=== PATIENT | female | born 1965 | race Caucasian/White ===

== ENCOUNTER 2024-07-17 09:15 | Inpatient (IN) | payer MEDICAID, SELFPAY ==
--- NOTE | 2024-07-14 07:59 | EKG_ITS ---
[facility] Test Date: 2024-07-14 Pat Name: MARYURI DOWNING Department: Room: - Gender: Female Baker Test: DORIS : 1965 Requested By: Tye Ellis Order Number: [id number] Reading MD: Tye Ellis Measurements Intervals [place] Rate: 88 P: 61 WI: 164 QRS: 49 QRSD: 72 T: 46 QT: 340 QTc: 413 Interpretive Statements SINUS RHYTHM NONSPECIFIC ST & T-WAVE ABNORMALITY No previous ECG available for comparison /store/S0/[id number]/ecg/[id number]
[2024-07-14 10:34] VITALS: BMI 22.7
[2024-07-14 12:08] LABS: Basophils # (Auto) 0.1 Thou/mm3 (0.0-0.2); Basophils % (Auto) 1 % (0-2.5); Eosinophils # (Auto) 0.1 Thou/mm3 (0.0-0.5); Eosinophils % (Auto) 1 % (0-10); Hematocrit 38.1 % (36.0-46.0); Hemoglobin 12.7 g/dL (12.0-16.0); Immature Granulocytes % (Auto) 1 % (0-0); Immature Granulocytes Auto 0.03 Thou/mm3 (0.00-0.00); Lymphocytes # (Auto) 1.2 Thou/mm3 (1.0-4.8); Lymphocytes % (Auto) 23 % (10-50); Mean Corpuscular HGB Conc 33.3 g/dl (31.0-37.0); Mean Corpuscular Hemoglobin 33.3 pg (25.0-35.0); Mean Corpuscular Volume 100 fL (80-100); Monocytes # (Auto) 0.5 Thou/mm3 (0.0-0.8); Monocytes % (Auto) 10 % (0-12); Neutrophils # (Auto) 3.2 Thou/mm3 (1.8-7.7); Neutrophils % (Auto) 64 % (37-80); Nucleated Red Blood Cell % 0 /100 WBC (0); Platelet Count 298 Thou/mm3 (140-440); RDW Standard Deviation 43.8 fL (36.4-46.3); Red Blood Count 3.81 Miln/mm3 (4.00-5.20)
[2024-07-14 12:19] LABS: Anion Gap 6 (7-16); BUN/Creatinine Ratio 17 Ratio (12-20); Blood Urea Nitrogen 15 mg/dL (9-23); Carbon Dioxide 28.3 mMol/L (20.0-31.0); Chloride 105 mMol/L (98-107); Creatinine (Component) 0.9 mg/dL (0.6-1.3); Estimated Creatinine Clearance 67.1 mL/min (>60); Glucose 111 mg/dL (74-106); Osmolality,Calculated 279 (275-295); Potassium 3.8 mMol/L (3.4-5.1); Sodium 139 mMol/L (136-145); eGFR > 60 See Note
[2024-07-17] VITALS (18 sets, daily range): BP systolic 132–151; BP diastolic 83–99; PULSE 81–109; RESP 11–25; TEMP 36.2–36.9; O2SAT 97–100; BMI 22.4
--- NOTE | 2024-07-17 10:35 | CHAP ---
Patient expressed gratitude for prayer before their procedure.
--- NOTE | 2024-07-17 13:30 | SUR.PHASEI ---
pt received from OR in recovery bay 5. pt asleep but responds to voice, breathing unlabored on oxymask 6l, v/s stable. pt dressing to abd cdi, ileostomy in place. report received from Nishant RUTLEDGE and Shanique DALTON.
--- NOTE | 2024-07-17 13:40 | ESOP_ITS ---
Date of Procedure 07/17/24 Pre Op Diagnosis Rectal cancer status post chemo and radiation Post Op Diagnosis Rectal cancer status post chemo and radiation Procedure Exploratory laparotomy, rectosigmoidectomy Diverting loop ileostomy Findings Proximal rectal cancer with blue marking clearly visible. No evidence of pelvic, omental or peritoneal nodules or metastasis. Anterior surface of the liver was smooth without any lesions. Procedure Description Patient brought into the operating room in supine position. After administration of general tracheal anesthesia, patient was placed in low lithotomy position. Her abdomen and perineum prepped and draped in standard surgical manner. A laparotomy incision was made from below the umbilicus to suprapubic region and dissection was deepened into soft tissue. Anterior abdominal fascia was divided. Upon entering the peritoneal cavity a Bookwalter retractor was placed for adequate exposure. There was no evidence of pelvic or omental nodules or metastasis. The anterior surface of the liver was palpated, was smooth without any obvious lesions. The small bowel was eviscerated, was run from ligament of Treitz up to ileocecal junction, no evidence of mass, lesions are lymphadenopathy noted. Cecum, ascending colon, transverse and descending colon were palpated, no obvious mass or any tumors noted. Descending colon and sigmoid colon were mobilized by dividing the white line of Toldt. Mobilization continued cephalad and medial rectum was divided. The rectum mobilized distally up to the level of levator ani distal to the area of blue marking. The blue markings were clearly visible in the mid rectum. Once the rectum was fully mobilized, this distal aspect of the rectum was divided with TA stapling device. There were some inflammatory reaction and edema of the rectum from history of radiation. Remaining aspect of medial rectum was divided with Enseal harmonic device. Inferior mesenteric artery was ligated near its origin, inferior mesenteric vein was ligated inferior to the fourth portion of duodenum. The proximal sigmoid colon was divided with REX stapling device. The end of descending colon was reaching the rectum without any tension. Descending colon was mobilized all the way up to splenic flexure to ensure a tension-free anastomosis. The end of descending colon was opened, a pursestring suture using 2-0 Prolene applied. The anvil portion of the EEA stapling device was placed through the opening and the pursestring suture was tightened. Anal canal was sequentially dilated. The EEA stapling device was placed through the anus and was advanced and brought out anterior to the rectal staple line. The stapler was opened and connected with an anvil, care was taken to make sure orientation was appropriate without tension or any kinking. The stapler was closed and fired. The staple line was removed, 2 well-formed donuts were retrieved. An air leak test was performed to assure the integrity of the anastomosis. Rigid proctoscope was placed through the anal canal and air was insufflated, there was no air bubbles in the pelvis assuring hemostasis was airtight. Because the anastomosis was very low in the pelvis, I was unable to place reinforcing Lembert sutures. Abdomen and pelvis copiously and thoroughly washed and irrigated, all the fluids were suctioned and the suction fluid returned clear. Hemostasis was adequate and satisfactory. Because the anastomosis was very low in the pelvis and there were some edema of the rectum from the history of radiation, I elected to perform a diverting loop ileostomy. A loop of ileum approximately 30 cm proximal to ileocecal junction was selected. 3 cm circular opening was made on the right mid abdomen. Anterior abdominal fascia was opened vertically, the rectus muscle was split, posterior abdominal fascia and peritoneum were opened. The opening was easily accommodating 3 finger breaths. The loop of ileum was brought out of this opening to be matured as a loop ileostomy. The laparotomy incision was closed at this time. Anterior abdominal fascia was closed with running PDS as well as interrupted sutures with #1 Vicryl. The wound was washed and the skin was closed with brigette. The loop ileostomy was matured in Radha fashion, the afferent limb was superior and the efferent limb was inferior. Appropriate ileostomy appliance is applied. Incision was covered with dry sterile dressings. Patient tolerated the procedure well. She was placed in supine position and extubated. She was breathing spontaneously and without difficulty and was transferred to postanesthesia care in stable condition. Instruments, needles and sponge counts were reported to be correct x 2. Anesthesia GETA and local Pathology / specimen Other (Rectosigmoid) Estimated Blood Loss 50 Condition Stable Disposition PACU Surgeon Tye Ellis MD Surgical Staff Operation Date: 07/17/24 11:45 Case Staff MERCHANDISE CARRIER: Nishant Trevizo RN First Assistant: Kera Montano
[2024-07-17] MEDS: MORPHINE SULF 1 MG/ML PCA SYRINGE 30 ML PCA (13:56)
[2024-07-17] MEDS: KCL 20 mEq/L in D5-1/2NS 20 MEQ/1,000 ML BAG 70 MEQ IV (13:58)
--- NOTE | 2024-07-17 16:20 | SUR.PHASEII ---
pt asleep but responds to voice, breathing unlabored on 1l nc. v/s stable. pt dressing to abd cdi. report called to Leighton Lopez. pt will be transferred to floor at this time.
[2024-07-17] MEDS: PANTOPRAZOLE INJ 40 MG VIAL IVP (17:41)
[2024-07-17] MEDS: CEFOXITIN 2 GM in SODIUM CHLORIDE 0.9% (P) 50 ML IV ×2 (17:42→23:37)
[2024-07-17] MEDS: ACETAMINOPHEN IVPB 1,000 MG/100 ML VIAL 250 MG IV (17:44)
[2024-07-18] VITALS (10 sets, daily range): BP systolic 115–134; BP diastolic 78–91; PULSE 95–105; RESP 16–20; TEMP 36.8–37.2; O2SAT 98–100
[2024-07-18] MEDS: ACETAMINOPHEN IVPB 1,000 MG/100 ML VIAL 250 MG IV ×3 (00:22→12:12)
[2024-07-18] MEDS: MORPHINE SULF 1 MG/ML PCA SYRINGE 30 ML PCA (00:48)
[2024-07-18] MEDS: CEFOXITIN 2 GM in SODIUM CHLORIDE 0.9% (P) 50 ML IV ×4 (06:46→23:50)
[2024-07-18] MEDS: ASCORBIC ACID 250 MG TABLET 500 MG PO ×2 (09:25→20:46)
[2024-07-18] MEDS: PANTOPRAZOLE INJ 40 MG VIAL IVP (09:25)
[2024-07-18] MEDS: ZINC SULFATE 220 MG CAPSULE PO (09:25)
[2024-07-18] MEDS: KCL 20 mEq/L in D5-1/2NS 20 MEQ/1,000 ML BAG 70 MEQ IV (09:42)
[2024-07-18] MEDS: ONDANSETRON INJ 2 MG/ML INJ 2 ML 4 MG IV (12:11)
--- NOTE | 2024-07-18 12:17 | PD.SURPROG ---
Documentation for date of: 07/18/24 Subjective Subjective Narrative: Patient is seen and examined. She is resting, pain is controlled with HARP REPAIRER. She denies nausea or vomiting Exam Vital Signs Temp Pulse Resp BP Pulse Ox O2 Del Method O2 Flow Rate 98.2 F 104 H 16 129/78 99 Nasal Cannula 1 07/18/24 11:36 07/18/24 11:36 07/18/24 11:36 07/18/24 11:36 07/18/24 11:36 07/18/24 11:36 07/18/24 11:36 Constitutional Constitutional: no acute distress Routine Abdominal Exam Comments: Abdomen is soft and mildly distended. She has hypoactive bowel sounds. Ileostomy has greenish fluid. Incision with dressing clean, dry and intact Assessment & Plan Assessment Additional comments: Postop day #1 status post rectosigmoidectomy with diverting loop ileostomy Plan Will start patient on clear liquids and Ensure supplements. Hep-Lock IV fluids. Increase ambulation. Use incentive spirometer Procedures Procedures Exploratory laparotomy, rectosigmoidectomy Diverting loop ileostomy
--- NOTE | 2024-07-18 12:19 | PC.SS ---
This is 58-year-old, , single female who presented to the hospital for surgery. Patient appeared alert and oriented to self, place and situation. Patient was pleasant, her mood and behavior was ordinary. Patient's thought process was organized and logical. Patient reported that prior to hospital admission, she resided alone at home. Patient is independent; she denied any DME use. Patient assigned her daughter, Edna as her emergency contact and medical decision maker. Patient's PCP is CHRISTINA and surgeon is Dr. Ellis. When medically clear, patient will return home; family will provide transportation.
[2024-07-19] VITALS (8 sets, daily range): BP systolic 113–128; BP diastolic 74–89; PULSE 80–104; RESP 16–97; TEMP 36.1–37.1; O2SAT 95–100
[2024-07-19] MEDS: CEFOXITIN 2 GM in SODIUM CHLORIDE 0.9% (P) 50 ML IV ×3 (05:27→17:47)
[2024-07-19] MEDS: MORPHINE SULF 1 MG/ML PCA SYRINGE 30 ML PCA (05:52)
[2024-07-19 05:53] LABS: Basophils % (Auto) 0 % (0-2.5); Eosinophils % (Auto) 0 % (0-10); Hematocrit 36.4 % (36.0-46.0); Immature Granulocytes % (Auto) 0 % (0-0); Immature Granulocytes Auto 0.03 Thou/mm3 (0.00-0.00); Lymphocytes # (Auto) 0.7 Thou/mm3 (1.0-4.8); Lymphocytes % (Auto) 8 % (10-50); Mean Corpuscular Hemoglobin 33.6 pg (25.0-35.0); Mean Corpuscular Volume 102 fL (80-100); Monocytes # (Auto) 0.6 Thou/mm3 (0.0-0.8); Monocytes % (Auto) 7 % (0-12); Neutrophils # (Auto) 7.5 Thou/mm3 (1.8-7.7); Neutrophils % (Auto) 84 % (37-80); Nucleated Red Blood Cell % 0 /100 WBC (0); Platelet Count 265 Thou/mm3 (140-440); RDW Standard Deviation 44.8 fL (36.4-46.3); Red Blood Count 3.57 Miln/mm3 (4.00-5.20); White Blood Count 8.9 Thou/mm3 (3.6-11.0)
[2024-07-19 06:15] LABS: Albumin, Serum 4.1 gm/dL (3.5-5.0); Anion Gap 6 (7-16); BUN/Creatinine Ratio 12 Ratio (12-20); Blood Urea Nitrogen 7 mg/dL (9-23); Calcium 10.1 mg/dL (8.3-10.6); Calcium (Corrected) 10.1 mg/dL (8.5-10.1); Carbon Dioxide 26.3 mMol/L (20.0-31.0); Chloride 108 mMol/L (98-107); Creatinine (Component) 0.6 mg/dL (0.6-1.3); Estimated Creatinine Clearance 100.6 mL/min (>60); Glucose 103 mg/dL (74-106); Magnesium 2.2 mg/dL (1.6-2.6); Osmolality,Calculated 277 (275-295); Phosphorous 2.4 mg/dL (2.4-5.1); Sodium 140 mMol/L (136-145); eGFR > 60 See Note
[2024-07-19] MEDS: ASCORBIC ACID 250 MG TABLET 500 MG PO ×2 (08:48→21:05)
[2024-07-19] MEDS: PANTOPRAZOLE INJ 40 MG VIAL IVP (08:48)
[2024-07-19] MEDS: ZINC SULFATE 220 MG CAPSULE PO (08:48)
--- NOTE | 2024-07-19 11:42 | PD.SURPROG ---
Documentation for date of: 07/19/24 Subjective Subjective Narrative: Pt is seen and examined. Pain is controlled. She is tolerating clear liquids. Exam Vital Signs Temp Pulse Resp BP Pulse Ox O2 Del Method O2 Flow Rate 97.5 F 98 18 127/74 98 Nasal Cannula 1 07/19/24 07:51 07/19/24 10:37 07/19/24 10:37 07/19/24 07:51 07/19/24 10:37 07/19/24 07:51 07/19/24 10:37 Constitutional Constitutional: no acute distress Routine Abdominal Exam Abdominal: Present soft, normoactive bowel sounds, tenderness (Yessica-incisional tenderness. Incision with dressing clean, dry and intact.), distended (minimally distended) and ostomy (Ileostomy is pink, patent, present and productive) Assessment & Plan Assessment Additional comments: Postop day #2 status post rectosigmoidectomy with diverting loop ileostomy Plan Advance to soft diet. DC seo catheter. Continue to use incentive spirometer and increase ambulation Procedures Procedures Exploratory laparotomy, rectosigmoidectomy Diverting loop ileostomy
[2024-07-19] MEDS: HYDROcodone/APAP 5/325 TABLET 1 TAB PO (16:02)
[2024-07-20] VITALS (7 sets, daily range): BP systolic 115–148; BP diastolic 74–98; PULSE 90–103; RESP 16–97; TEMP 36.3–37.4; O2SAT 96–98; BMI 22.4
[2024-07-20] MEDS: CEFOXITIN 2 GM in SODIUM CHLORIDE 0.9% (P) 50 ML IV ×4 (00:24→19:23)
[2024-07-20] MEDS: HYDROcodone/APAP 5/325 TABLET 1 TAB PO ×3 (00:31→19:41)
--- NOTE | 2024-07-20 07:51 | PD.SURPROG ---
Documentation for date of: 07/20/24 Subjective Subjective Narrative: Patient is seen and examined. She is tolerating diet without nausea or vomiting and voiding without difficulty. Exam Vital Signs Temp Pulse Resp BP Pulse Ox O2 Del Method O2 Flow Rate 97.9 F 103 H 20 131/90 H 97 Room Air 1 07/20/24 04:00 07/20/24 07:00 07/20/24 07:00 07/20/24 04:00 07/20/24 04:00 07/20/24 04:00 07/20/24 00:00 Constitutional Constitutional: no acute distress Routine Abdominal Exam Comments: Abdomen is soft and minimally distended. Incision is clean, dry and intact. Ileostomy is pink, patent, present and productive Assessment & Plan Assessment Additional comments: Postop day #3 status post rectosigmoidectomy with diverting loop ileostomy Plan Will advance diet. Will make arrangements for home health to assist with ileostomy. When tolerating soft diet and pain is controlled with oral pain medication will discharge home possibly tomorrow. Procedures Procedures Exploratory laparotomy, rectosigmoidectomy Diverting loop ileostomy
[2024-07-20] MEDS: PANTOPRAZOLE INJ 40 MG VIAL IVP (09:36)
[2024-07-20] MEDS: ZINC SULFATE 220 MG CAPSULE PO (09:37)
[2024-07-20] MEDS: ASCORBIC ACID 250 MG TABLET 500 MG PO ×2 (09:37→20:13)
--- NOTE | 2024-07-20 10:12 | PC.CC ---
Pt enered into [facility], no preferred HH agency
--- NOTE | 2024-07-20 11:00 | PC.NURSE ---
Changed ileostomy bag and educated patient on proper way to clean, empty and place new bag.
--- NOTE | 2024-07-20 12:46 | PC.SS ---
Follow up note: Pt is on IV antibiotic and will monitor 1 more night. Pt will return home with HH Services for Ileostomy Care. SS spoke to bedside nurse, Nara who explained Dr. Ellis ordered [facility] for [facility]. Pt does not have preference for HH Services. Pt will be staying at address: [address] [place] [address] [address]. Patient's dtrs will help care for pt at home.
[2024-07-21] VITALS: BP 121/74; PULSE 95; RESP 18; TEMP 36.6; O2SAT 98
[2024-07-21] MEDS: CEFOXITIN 2 GM in SODIUM CHLORIDE 0.9% (P) 50 ML IV ×3 (00:54→11:30)
[2024-07-21 04:00] VITALS: BP 123/80; PULSE 89; RESP 16; TEMP 36.1; O2SAT 97
[2024-07-21] MEDS: HYDROcodone/APAP 5/325 TABLET 1 TAB PO ×2 (04:50→11:32)
[2024-07-21 06:35] VITALS: PULSE 91; RESP 18; RESP 97
[2024-07-21 07:42] VITALS: BP 115/74; PULSE 89; RESP 17; TEMP 36.4; O2SAT 97
[2024-07-21] MEDS: PANTOPRAZOLE 40 MG TABLET PO (08:38)
[2024-07-21] MEDS: ZINC SULFATE 220 MG CAPSULE PO (08:38)
[2024-07-21] MEDS: ASCORBIC ACID 250 MG TABLET 500 MG PO (08:38)
--- NOTE | 2024-07-21 10:27 | ESDS_ITS ---
Planned Discharge Date 07/21/24 DS: Providers Provider Date of admission: 07/17/24 09:15 Primary care physician: Nacho Britton MD Admitting Provider: Tye Ellis MD Attending Provider on Admission: Tye Ellis MD Attending Provider on DC: Tye Ellis MD Discharging Provider: Tye Ellis MD Diagnosis Problem List Completed Was Problem List Reviewed/Reconciled?: Yes Hospital Course 58-year-old female with history of rectal cancer underwent neoadjuvant chemo and radiation. She was then admitted to the hospital, underwent exploratory laparotomy, rectosigmoidectomy with low pelvic anastomosis and diverting loop ileostomy. Her Lam catheter was removed on postop day #2, she was able to void without difficulty. Her pain was initially controlled with NUCLEAR OPERATIONS SPECIALIST then switched to oral pain medication. She was started on clear liquids and her diet was gradually advanced. She was eating and tolerating diet well without nausea or vomiting. Her ileostomy has been functioning. Her incision is clean, dry and intact. She has remained afebrile and hemodynamically stable throughout hospitalization. She is being discharged home with home health in stable condition. Status at Discharge Functional status at discharge: independent ambulation Overall status at discharge: patient is progressing back to baseline Exam Vital Signs Temp Pulse Resp BP Pulse Ox O2 Del Method O2 Flow Rate 97.6 F 89 17 115/74 97 Room Air 1 07/21/24 07:42 07/21/24 07:42 07/21/24 07:42 07/21/24 07:42 07/21/24 07:42 07/21/24 07:42 07/21/24 00:00 Constitutional Constitutional: no acute distress Routine Abdominal Exam Abdominal: Present soft, normoactive bowel sounds, tenderness (Minimal karen- incisional tenderness. Incision is clean, dry and intact) and ostomy (Loop ileostomy is present, patent and productive); Absent distended Discharge Plan Plan Patient Disposition: Home w/HOME HEALTH Prescriptions/Referrals Prescriptions/Med Rec: New ascorbic acid (vitamin C) [Vitamin C] 250 mg Tablet 500 mg PO BID Qty: 60 0RF hydrocodone-acetaminophen 5-325 mg Tablet 1 tab PO Q6HR MDD 4 PRN (Reason: pain (scale score 7-10)) Qty: 30 0RF zinc sulfate 50 mg zinc (220 mg) Capsule 220 mg PO QDAY Qty: 30 0RF Continued famotidine 20 mg tablet 20 mg PO HS Patient Comments: TAKE 1 TABLET BY MOUTH EVERY DAY AT BEDTIME FOR 90 DAYS Referrals: Nacho Britton MD [Primary Care Provider] - Patient/Caregiver Discharge Instructions Discharge Activity: activity as tolerated Print Language: Setswana Activity Restrictions/Additional Instructions: Cover the ileostomy bag with a plastic bag and may shower. Avoid lifting, str aining, pulling or pushing for 8 weeks. Follow-up with Dr Ellis at [facility] in 2 weeks, please call for an appointment. May dilute Pedialyte and or Gatorade with water and drink daily. Stand Alone Forms: [employer] Award Info., Patient Portal Info Letter Discharge Order Discharge Orders: Discharge (Routine); Ordered 07/21/24 Ordered By: Tye Ellis Procedures Procedure Date 07/17/24 Procedures Exploratory laparotomy, rectosigmoidectomy Diverting loop ileostomy
--- NOTE | 2024-07-21 11:30 | PC.SS ---
SS contacted Binh and informed her that patient had discharge orders. Binh informed SS that she would work on finding a HH agency and informed SS to contact nurse to update her and not discharge patient until HH agency is established. SS contacted patient's nurse and informed her not to discharge patient until HH agency was established.
--- NOTE | 2024-07-21 11:31 | PC.CM ---
Addendum entered by John Farley RN 07/21/24 14:14: [facility] accepted [facility] pt. [facility]ed [facility] Start of care date is 07/23/24. Addendum entered by John Farley RN 07/21/24 14:10: 12 HH agencies decline the pt. Addendum entered by John Farley RN 07/21/24 11:32: No preference of HH agency per SS notes. HH referral sent on [facility]. Awaiting responses. Pending Start of care date. Original Note: spoke to Veda SS pt needs HH for Ileostomy care. Entered pt. on [facility].
[2024-07-21 12:00] VITALS: BP 114/79; PULSE 90; RESP 18; TEMP 36.6; O2SAT 95
--- NOTE | 2024-07-21 13:15 | PC.WOUND ---
5 ostomy kits given to pt at bedside. Daughter/pt have been taught, no questions or concerns. Home health to be arranged by transfer RN.
== END 2024-07-21 12:42 | disposition home health service (06) | DRG 230 ==
LOC: S2W1 14:07 → S3NX 16:22
PROVIDERS: Admitting Provider Surgery; PCP Family Medicine; Visit Provider Surgery
PROC: 0DTN0ZZ Resection of Sigmoid Colon, Open Approach (ICD-10-PCS; principal; 2024-07-17 11:30)
DX: C20 Malignant neoplasm of rectum (principal)
CPT/HCPCS: 36415; 80048; 80053; 80069; 83735; 85025; 93005; A4649; J0131; J0694; J1100; J2250; J2270; J2405; J2470; J3010; J3480; J3490; J7050; A9270

== ENCOUNTER → 2024-10-29 | Outpatient (CLI) | payer OTHER, SELFPAY ==
--- NOTE | 2024-10-29 | XR_ITS ---
Examination: Abdomen single view Exam date and time: October 29, 2024 0948 hours INDICATIONS: Preop surgical reanastomosis: FINDINGS: Nonobstructive bowel gas pattern Right ostomy The patient refused the limited barium study IMPRESSION: The patient refused the Limited barium study
== END | disposition home or self-care (01) ==
LOC: SDIM 11-02 07:50
PROVIDERS: PCP Family Medicine; Referring Provider Surgery; Visit Provider Surgery
DX: Z53.29 Procedure and treatment not carried out because of patient's decision for other reasons (principal); Z01.818 Encounter for other preprocedural examination; Z85.048 Personal history of other malignant neoplasm of rectum, rectosigmoid junction, and anus
CPT/HCPCS: 74018; 74270

== ENCOUNTER 2024-12-28 06:45 | Day surgery (SDC) | payer OTHER, SELFPAY ==
[2024-12-25 13:42] VITALS: BMI 21.1
[2024-12-28] VITALS (9 sets, daily range): BP systolic 128–157; BP diastolic 74–99; PULSE 82–120; RESP 15–19; TEMP 36.7; O2SAT 96–100; BMI 21.2
[2024-12-28] MEDS: MIDAZOLAM INJ 1 MG/ML VIAL 2 ML (ASD USE ONLY) 2 MG IV (07:52)
[2024-12-28] MEDS: SODIUM CHLORIDE 0.9% 500 ML 500 ML 100 ML IV (07:52)
[2024-12-28] MEDS: fentaNYL CIT INJ 50 mCg/ML AMP 2ML (ASD USE ONLY) 25 MCG IV (07:54)
== END 2024-12-28 08:12 | disposition home or self-care (01) ==
PROVIDERS: Referring Provider Surgery; Visit Provider Surgery
PROC: (CPT 45331; principal; 2024-12-28 07:30)
DX: Z12.11 Encounter for screening for malignant neoplasm of colon (principal); Z85.048 Personal history of other malignant neoplasm of rectum, rectosigmoid junction, and anus; Z93.2 Ileostomy status; K21.9 Gastro-esophageal reflux disease without esophagitis; I10 Essential (primary) hypertension; K64.4 Residual hemorrhoidal skin tags; K57.30 Diverticulosis of large intestine without perforation or abscess without bleeding; Z98.0 Intestinal bypass and anastomosis status
CPT/HCPCS: 45330; J2250; J3010; J7040

== ENCOUNTER 2025-01-29 09:40 | Inpatient (IN) | payer OTHER, SELFPAY ==
[2025-01-27 07:45] VITALS: BMI 22.1
[2025-01-27 09:46] LABS: Basophils # (Auto) 0.1 Thou/mm3 (0.0-0.2); Basophils % (Auto) 1 % (0-2.5); Eosinophils # (Auto) 0.1 Thou/mm3 (0.0-0.5); Eosinophils % (Auto) 1 % (0-10); Hematocrit 34.9 % (36.0-46.0); Immature Granulocytes % (Auto) 1 % (0-0); Immature Granulocytes Auto 0.04 Thou/mm3 (0.00-0.00); Lymphocytes % (Auto) 18 % (10-50); Mean Corpuscular HGB Conc 34.4 g/dl (31.0-37.0); Mean Corpuscular Hemoglobin 32.7 pg (25.0-35.0); Mean Corpuscular Volume 95 fL (80-100); Monocytes # (Auto) 0.5 Thou/mm3 (0.0-0.8); Monocytes % (Auto) 10 % (0-12); Neutrophils # (Auto) 3.9 Thou/mm3 (1.8-7.7); Neutrophils % (Auto) 70 % (37-80); Nucleated Red Blood Cell % 0 /100 WBC (0); Platelet Count 363 Thou/mm3 (140-440); RDW Standard Deviation 44.2 fL (36.4-46.3); Red Blood Count 3.67 Miln/mm3 (4.00-5.20); White Blood Count 5.6 Thou/mm3 (3.6-11.0)
[2025-01-27 10:08] LABS: Anion Gap 7 (7-16); BUN/Creatinine Ratio 16 Ratio (12-20); Blood Urea Nitrogen 16 mg/dL (9-23); Calcium 9.5 mg/dL (8.3-10.6); Carbon Dioxide 27.1 mMol/L (20.0-31.0); Chloride 108 mMol/L (98-107); Estimated Creatinine Clearance 57.4 mL/min (>60); Glucose 102 mg/dL (74-106); Osmolality,Calculated 284 (275-295); Potassium 3.8 mMol/L (3.4-5.1); Sodium 142 mMol/L (136-145); eGFR > 60 See Note
--- NOTE | 2025-01-28 14:02 | SUR.PREOP ---
Pt notified to come in at 1000 tomorrow for surgery.
[2025-01-29] VITALS (16 sets, daily range): BP systolic 131–154; BP diastolic 86–103; PULSE 79–124; RESP 12–20; TEMP 36.2–37.1; O2SAT 96–100; BMI 21.2; BMI 21.5
--- NOTE | 2025-01-29 14:15 | PD.SUROPNT ---
Date of Procedure 01/29/25 Pre Op Diagnosis History of rectal cancer status post LAR with diverting loop ileostomy Post Op Diagnosis History of rectal cancer status post LAR with diverting loop ileostomy Procedure Reversal of loop ileostomy and resection of distal ends of loop ileostomy Findings Minimal adhesions and a small parastomal hernia Procedure Description Patient presents for operating room in supine position. After administration of general tracheal anesthesia, the loop ileostomy site was closed with a pursestring suture using 0 Prolene. Abdomen prepped and draped in standard surgical manner. An elliptical vertical incision was made around the ileostomy site and dissection was deepened into soft tissue. Patient was noted to have a small parastomal hernia. The hernia sac was circumferentially dissected out surrounding tissue. The adhesions around abdominal fascia was divided and the loops of ileum were freed from lateral abdominal fascia. There was minimal amount of adhesions that were lysed. The ends of loop ileostomy were divided with REX stapling device. A [id number], functional end-to-end anastomosis was then created with REX stapling device. The enterotomy sites were closed with running 2-0 Vicryl and reinforced with 3-0 silk suture in a Lembert fashion. The mesenteric defect was closed with interrupted [id number] sutures using 3-0 silk. Anastomosis was placed inside the abdominal cavity. Anterior abdominal fascia was closed with running 0 PDS as well as interrupted sutures with #1 Vicryl. The wound was washed and irrigated. Soft tissue reapproximated with interrupted sutures using 0 Vicryl. Incision was closed with brigette. Sterile dressings and abdominal binder applied. Patient tolerated procedure well. She was extubated, breathing spontaneously and without difficulty and was transferred to postanesthesia care in stable condition. Instruments, needles and sponge counts were reported to be correct x 2. Anesthesia GETA Pathology / specimen Other (Loop ileostomy ends) Estimated Blood Loss 20 Condition Stable Disposition PACU Surgeon Tye Ellis MD Surgical Staff Operation Date: 01/29/25 12:15 Case Staff Anesthesiologist: Moshe Alejandro RN First Assistant: Karla Sewell
--- NOTE | 2025-01-29 14:22 | SUR.PHASEI ---
1422: Pt. AAOx4, vitals stable, breathing unlabored, complaint of pain, will give pain medicine, dressing to ABD CDI, no active bleed noted, seo catheter in place, report received from MD Alejandro and Lio DALTON.
[2025-01-29] MEDS: fentaNYL CIT INJ 50 mCg/ML AMP 2ML 25 MCG IV ×2 (14:31→14:40)
[2025-01-29] MEDS: HYDROmorphone 1 MG/ML PCA SYRINGE 30ML PCA (14:45)
[2025-01-29] MEDS: POT CHL ADDITIVE 20 MEQ in DEXTROSE 5%-LACTATED RINGERS 1,000 ML 50 MEQ IV (14:57)
[2025-01-29] MEDS: KCL 20 mEq/L in D5-1/2NS 20 MEQ/1,000 ML BAG 50 MEQ IV (16:21)
--- NOTE | 2025-01-29 16:40 | SUR.PHASEI ---
1640: Pt. AAOx4, vitals stable, breathing unlabored, no complaint of pain or nausea, dressing to ABD CDI, no active bleed noted, pt. tolerated bites of ice chips well, report given to Norma DALTON to resume care.
--- NOTE | 2025-01-29 16:40 | SUR.PHASEI ---
received transfer of care report from KRYSTLE Almaraz. Pt awake A&ox3, pt states pain 2/10 to abd and is tolerable. Pt has IMPLEMENTATION LEAD pump for pain management. IV in place, no s/s of redness or infiltration noted to site. F/C in place and draining well, clear yellow urine. Abd binder in place. Pt has clear lung sounds to all lobes. active bowel sounds to right side of abdomen, hypoactive bowel to left side of abdomen. HR is tachy 120's, pt states she has severe anxiety and that is baseline for her. no distress noted. Pt tolerating ice chips, pt denies any nausea at this time.
--- NOTE | 2025-01-29 17:10 | SUR.PHASEI ---
Pt recoverying well, no distress noted, vss, dressing remains cdi, iv remains free of s/s of infiltration or redness, f/c continues to drain well. Pt denies any pain or nausea at this time. Report given to KRYSTLE Mcclain. Pt ready for transfer to the room.
[2025-01-29] MEDS: PANTOPRAZOLE INJ 40 MG VIAL IVP (18:42)
[2025-01-29] MEDS: CEFOXITIN 2 GM in SODIUM CHLORIDE 0.9% (Popper) 50 ML IV (18:42)
[2025-01-29] MEDS: DOCUSATE SOD 100 MG CAPSULE PO (20:23)
[2025-01-29] MEDS: ASCORBIC ACID 250 MG TABLET 500 MG PO (20:24)
[2025-01-29] MEDS: ACETAMINOPHEN IVPB 1,000 MG/100 ML VIAL 250 MG IV (21:00)
[2025-01-30] VITALS (7 sets, daily range): BP systolic 135–147; BP diastolic 82–98; PULSE 90–117; RESP 16–20; TEMP 36.2–37.1; O2SAT 94–100
[2025-01-30] MEDS: ACETAMINOPHEN IVPB 1,000 MG/100 ML VIAL 250 MG IV ×2 (03:47→09:15)
[2025-01-30] MEDS: CEFOXITIN 2 GM in SODIUM CHLORIDE 0.9% (Popper) 50 ML IV ×4 (05:59→17:17)
[2025-01-30] MEDS: DOCUSATE SOD 100 MG CAPSULE PO ×2 (09:10→20:43)
[2025-01-30] MEDS: ASCORBIC ACID 250 MG TABLET 500 MG PO (09:11)
[2025-01-30] MEDS: ZINC SULFATE 220 MG CAPSULE PO (09:11)
[2025-01-30] MEDS: PANTOPRAZOLE INJ 40 MG VIAL IVP (09:11)
--- NOTE | 2025-01-30 10:45 | PC.SS ---
SS met with patient who is alert/oriented. Patient was able to verify demographics. Patient is independent with ADL's. Patient lives alone. She is employed. Patient had surgery yesterday. Reversal ileostomy. Hx: rectal ca. Pharmacy: [facility]. PCP: N/a. She is open to following up at [facility] upon discharge. Patient verbalized her daughter, Simona, is her alt medical decision maker. D/c plan is home. Family to provide transport d/c plan: Home alt medical decision maker: DaughterSimona,
--- NOTE | 2025-01-30 13:25 | PD.SURPROG ---
Documentation for date of: 01/30/25 Subjective Subjective Narrative: Pain controlled, no nausea, tolerated CLD for lunch and seo removed, vitals remaining normal Exam Vital Signs Temp Pulse Resp BP Pulse Ox O2 Del Method O2 Flow Rate 97.7 F 95 18 144/87 H 100 Nasal Cannula 5 01/30/25 12:00 01/30/25 12:00 01/30/25 12:00 01/30/25 12:00 01/30/25 12:00 01/30/25 12:00 01/30/25 12:00 Constitutional Constitutional: no acute distress Routine Respiratory Exam Respiratory: Present no resp distress Routine Abdominal Exam Abdominal: Present soft and wound (RLQ dressing c/d/i); Absent tenderness or distended Assessment & Plan Plan 59F with rectal CA s/p neoadjuvant chemoradiation, LAR with diverting loop iloestomy 07/2024 now s/p ileostomy reversal 01/29, recovering well CLD DC ASSISTANT DEPARTMENT MANAGER Procedures Procedures Reversal of loop ileostomy
[2025-01-30] MEDS: oxyCODONE HCL 5 MG IR TAB PO (17:56)
[2025-01-31] VITALS (7 sets, daily range): BP systolic 127–147; BP diastolic 85–96; PULSE 94–112; RESP 17–97; TEMP 36.2–37.2; O2SAT 95–98
[2025-01-31] MEDS: CEFOXITIN 2 GM in SODIUM CHLORIDE 0.9% (Popper) 50 ML IV ×4 (00:09→17:21)
[2025-01-31] MEDS: PANTOPRAZOLE INJ 40 MG VIAL IVP (09:04)
--- NOTE | 2025-01-31 12:41 | PD.SURPROG ---
Documentation for date of: 01/31/25 Subjective Subjective Narrative: Having little to no pain, no nausea, had three BMs since yesterday and is tolerating clear liquids, remaining afebrile Exam Vital Signs Temp Pulse Resp BP Pulse Ox O2 Del Method O2 Flow Rate 98.3 F 102 H 18 144/90 H 95 Room Air 5 01/31/25 08:00 01/31/25 08:00 01/31/25 08:00 01/31/25 08:00 01/31/25 08:00 01/31/25 08:00 01/30/25 12:00 Constitutional Constitutional: no acute distress Routine Respiratory Exam Respiratory: Present no resp distress Routine Abdominal Exam Abdominal: Present soft and wound (R incision with brigette c/d/i, no erythema); Absent tenderness or distended Assessment & Plan Plan 59F with rectal CA s/p neoadjuvant chemoradiation, LAR with diverting loop iloestomy 07/2024 now s/p ileostomy reversal 01/29, recovering well Advance to low residue diet Procedures Procedures Reversal of loop ileostomy
[2025-02-01] VITALS: BP 135/91; PULSE 102; RESP 18; TEMP 36.4; O2SAT 98
[2025-02-01] MEDS: CEFOXITIN 2 GM in SODIUM CHLORIDE 0.9% (Popper) 50 ML IV ×2 (00:42→05:31)
[2025-02-01 04:00] VITALS: BP 128/87; PULSE 101; RESP 18; TEMP 36.2; O2SAT 97
[2025-02-01 07:57] VITALS: BP 131/83; PULSE 98; RESP 17; TEMP 37.1; O2SAT 97
--- NOTE | 2025-02-01 08:19 | ESDS_ITS ---
Planned Discharge Date 02/01/25 DS: Providers Provider Date of admission: 01/29/25 09:40 Primary care physician: Physician No Primary/Family Admitting Provider: Tye Ellis MD Attending Provider on Admission: Tye Ellis MD Attending Provider on DC: Tye Ellis MD Discharging Provider: Tye Ellis MD Diagnosis Problem List Completed Was Problem List Reviewed/Reconciled?: Yes Hospital Course 59-year-old female with history of rectal cancer status post neoadjuvant chemo and radiation. She then underwent low anterior resection with diverting loop ileostomy. Her recent colonoscopy revealed patent anastomosis. Patient was scheduled and underwent resection of distal ends of loop ileostomy with reversal of loop ileostomy. She was started on clear liquids and her diet was gradually advanced. She was eating and tolerating regular diet without nausea or vomiting. She started passing flatus and had multiple bowel movements. Her Lam catheter was removed on postop day #1, she was able to void without difficulty. Her incision is clean, dry and intact. She has remained hemodynamically stable. Her pain is well-controlled. She is being discharged home in stable condition. Status at Discharge Functional status at discharge: independent ambulation Overall status at discharge: patient is progressing back to baseline Exam Vital Signs Temp Pulse Resp BP Pulse Ox O2 Del Method O2 Flow Rate 98.8 F 98 17 131/83 H 97 Room Air 5 02/01/25 07:57 02/01/25 07:57 02/01/25 07:57 02/01/25 07:57 02/01/25 07:57 02/01/25 07:57 01/30/25 12:00 Constitutional Constitutional: no acute distress Routine Abdominal Exam Comments: Abdomen is soft and nondistended. Bowel sounds are active. Incision is clean, dry and intact Discharge Plan Plan Patient Disposition: HOME (Self Care) Prescriptions/Referrals Prescriptions/Med Rec: New ascorbic acid (vitamin C) [Vitamin C] 250 mg Tablet 500 mg PO BID Qty: 60 0RF zinc sulfate 50 mg zinc (220 mg) Capsule 220 mg PO QDAY Qty: 30 0RF hydrocodone-acetaminophen 5-325 mg tablet 1 tab PO Q6H MDD 4 PRN (Reason: pain (scale score 7-10)) Qty: 20 0RF Continued famotidine 20 mg tablet 20 mg PO HS Patient Comments: TAKE 1 TABLET BY MOUTH EVERY DAY AT BEDTIME FOR 90 DAYS multivitamin [Daily Multi-Vitamin] Tablet 1 tab PO QAM Referrals: No Primary/Family,Physician [Primary Care Provider] - Patient/Caregiver Discharge Instructions Discharge Activity: activity as tolerated Print Language: Hungarian Activity Restrictions/Additional Instructions: May shower. Wear abdominal binder at all times. Avoid lifting, straining, pulling or pushing for 6 weeks. May take over the counter laxatives if no bowel movement in 2 days, may start taking stool softeners if bowel movements become hard. Follow up with Dr. Ellis in 2 weeks, call [phone] for an appointment. Continue diet as tolerated. Stand Alone Forms: [employer] Info., Patient Portal Info Letter Discharge Order Discharge Orders: Discharge (Routine); Ordered 02/01/25 Ordered By: Tye Ellis Procedures Procedure Date 01/29/25 Procedures Reversal of loop ileostomy and resection of distal ends of loop ileostomy
[2025-02-01] MEDS: PANTOPRAZOLE INJ 40 MG VIAL IVP (09:05)
--- NOTE | 2025-02-01 10:35 | CHAP ---
Patient was visited by the Spiritual Care Volunteer who prayed for them. (Volunteer was in the hospital from 09:00-10:35).
== END 2025-02-01 09:43 | disposition home or self-care (01) | DRG 331 ==
LOC: S2W1 14:10 → S3SX 01-30 00:41
PROVIDERS: Admitting Provider Surgery; Visit Provider Surgery
PROC: 0DBB0ZZ Excision of Ileum, Open Approach (ICD-10-PCS; CPT 49000; principal; 2025-01-29 12:00)
DX: Z43.2 Encounter for attention to ileostomy (principal); K43.5 Parastomal hernia without obstruction or gangrene; Z85.048 Personal history of other malignant neoplasm of rectum, rectosigmoid junction, and anus; K66.0 Peritoneal adhesions (postprocedural) (postinfection); Z92.3 Personal history of irradiation; Z92.21 Personal history of antineoplastic chemotherapy
CPT/HCPCS: 36415; 80048; 85025; 94664; A4217; A4649; J0131; J0694; J1100; J2250; J2405; J2470; J2704; J3010; J3480; J3490; J7030; J7121; A9270